=== PATIENT | male | born 1985 | race Caucasian/White ===

== ENCOUNTER 2020-01-15 12:36 | Emergency (ER) | payer OTHER, SELFPAY ==
[2020-01-15 13:17] VITALS: BP 153/89; PULSE 81; RESP 18; TEMP 37.1; O2SAT 100
--- NOTE | 2020-01-15 13:36 | ED.URI ---
HPI - URI/Sore Throat General Chief Complaint: Upper Respiratory Infection Stated Complaint: sore throat Time Seen by Provider: 01/15/20 13:36 Source: patient Mode of arrival: ambulatory Limitations: no limitations History of Present Illness HPI Narrative: Humberto Ortiz is a 34 yo male with no PMH who comes to express care with a sore throat that started 2 days ago. He has been having difficulty with swallowing, no fever, is able to drink fluids, states that he thought it was strep although he has no known exposure Related Data Allergies Allergy/AdvReac Type Severity Reaction Status Date / Time No Known Allergies Allergy Verified 01/15/20 13:00 Review of Systems Review of Systems: Narrative: CONSTITUTIONAL: Denies fever, chills, sweats. EYES: Denies visual changes, redness, discharge. ENT: Denies rhinorrhea, congestion, has sore throat, no otalgia. CARDIOVASCULAR: Denies chest pain, palpitations, edema. RESPIRATORY: Denies dyspnea, wheezing, cough GASTROINTESTINAL: Denies abdominal pain, nausea, vomiting, diarrhea. GENITOURINARY: Denies dysuria, hematuria, abnormal discharge SKIN: Denies rash or itching. NEUROLOGIC: Denies numbness, or focal weakness. PSYCHIATRIC: Denies anxiety or depression. [facility] Family History Family History (Updated 01/15/20 @ 13:46 by Becki Mancuso CNP) Other No acute medical problems Social History Social History (Updated 01/15/20 @ 13:46 by Becki Mancuso CNP) Smoking status: Former smoker Alcohol intake: current Comments At time of signature, I agree with nursing past medical, surgical, social and family history. There is no relevant family history pertinent to the presenting complaint. Blood pressure is elevated at this visit should follow-up with PCP for evaluation Exam Narrative: Exam Narrative: GENERAL: This is a well-nourished, well-developed patient, in mild distress. HEAD: normocephalic, atraumatic. EYES: Sclera clear/white. Vision is grossly intact. EARS: External ears normal, auditory canals clear and without drainage, TMs normal without perforation. Hearing grossly intact. NOSE: External nose normal without nasal discharge, nares without redness, no rhinorrhea. THROAT: Mucous membranes moist, posterior pharynx erythema NECK: Neck supple, tender to palpation CARDIOVASCULAR: Regular rate and rhythm without murmurs, gallops, or rubs. RESPIRATORY: Clear to auscultation. Breath sounds equal bilaterally. No wheezes, rales, or rhonchi. GASTROINTESTINAL: Abdomen soft, SKIN: warm, intact with no suspicious lesions or rash, good texture and turgor. NEURO: awake, alert, and oriented to person, place and time. There were no obvious focal neurologic abnormalities. Steady gait EXTREMITIES: Normal range of motion. BACK: Nontender without deformity Course Course Emergency Course: Strep test negative started on prednisone, cepacol lozenges, Z-Elvis(due to tender submandibular lymph nodes) Push fluids, follow-up with PCP especially regarding elevated blood pressure Vital Signs Vital signs: Vital Signs Temperature 98.8 F 01/15/20 13:17 Pulse Rate 81 01/15/20 13:17 Respiratory Rate 18 01/15/20 13:17 Blood Pressure 153/89 H 01/15/20 13:17 Pulse Oximetry 100 01/15/20 13:17 Temperature 98.8 F 01/15/20 13:17 Pulse Rate 81 01/15/20 13:17 Respiratory Rate 18 01/15/20 13:17 Blood Pressure 153/89 H 01/15/20 13:17 Pulse Oximetry 100 01/15/20 13:17 MDM - URI/Sore Throat Differential Diagnosis Differential diagnosis: Likely upper respiratory infection, sinusitis, pharyngitis and other Lab Data Labs: Strep Screen Presumptive Negative *(Reference Range: Negative)* Discharge Plan Discharge Clinical Impression: Pharyngitis Qualifiers: Pharyngitis/tonsillitis etiology: unspecified etiology Qualified Code(s): J02.9 - Acute pharyngitis, unspecified Patient Disposition: Home, Self-Care Condition: Sta
== END 2020-01-15 13:54 | disposition home or self-care (01) ==
PROVIDERS: Emergency Provider Nurse Practitioner
DX: J02.9 Acute pharyngitis, unspecified (principal); Z87.891 Personal history of nicotine dependence
CPT/HCPCS: 87081; 87880; 99213; G0463

== ENCOUNTER 2021-03-16 08:19 | Outpatient (CLI) | payer OTHER, SELFPAY ==
--- NOTE | 2021-03-16 11:30 | NEURO_ITS ---
Impression: # Complains of ankle pain. # Normal nerve conduction study. # Normal needle/EMG exam. # Clinical correlation recommended. Nerve Conduction Studies Anti Sensory Summary Table Stim Site NR Peak (ms) P-T Amp (?V) Site1 Site2 Delta-P (ms) Dist (cm) Saran (m/s) Left Sup Fibular Anti Sensory (Ant Lat Mall) 14 cm 3.2 6.6 14 cm Ant Lat Mall 3.2 16.0 50 Right Sup Fibular Anti Sensory (Ant Lat Mall) 14 cm 3.1 21.2 14 cm Ant Lat Mall 3.1 16.0 52 Left Sural Anti Sensory (Lat Mall) Calf 3.9 18.1 Calf Lat Mall 3.9 16.0 41 Right Sural Anti Sensory (Lat Mall) Calf 3.7 18.8 Calf Lat Mall 3.7 16.0 43 Motor Summary Table Stim Site NR Onset (ms) O-P Amp (mV) Site1 Site2 Delta-0 (ms) Dist (cm) Saran (m/s) Left Lateral Plantar Motor (ADM) Med Mall 5.0 2.5 Right Lateral Plantar Motor (ADM) Med Mall 4.5 1.1 Left Peroneal Motor (Vastus Med) Ankle 3.8 1.9 Popit Ankle 9.0 44.0 49 Popit 12.8 0.9 Right Peroneal Motor (Vastus Med) Ankle 4.1 1.6 Popit Ankle 7.9 39.0 49 Popit 12.0 1.1 Left Tibial Motor (Abd Stevens Brev) Ankle 4.3 5.8 Knee Ankle 9.3 43.0 46 Knee 13.6 3.8 Right Tibial Motor (Abd Stevens Brev) Ankle 4.1 4.5 Knee Ankle 9.3 42.0 45 Knee 13.4 3.1 F Wave Studies NR F-Lat (ms) L-R F-Lat (ms) Left Peroneal (Mrkrs) (EDB) 49.42 0.67 Right Peroneal (Mrkrs) (EDB) 48.75 0.67 Left Tibial (Mrkrs) (Abd Hallucis) 48.94 0.67 Right Tibial (Mrkrs) (Abd Hallucis) 49.61 0.67 EMG Side Muscle Nerve Root Ins Act Fibs Amp Dur Recrt Comment Right AntTibialis Dp Br Fibular L4-5 Nml Nml Nml Nml Nml Right Gastroc Tibial S1-2 Nml Nml Nml Nml Nml Right Fibularis Long Sup Br Fibular L5-S1 Nml Nml Nml Nml Nml Right Flex Dig Long Tibial L5-S2 Nml Nml Nml Nml Nml Right Ext Dig Brev Dp Br Fibular L5, S1 Nml Nml Nml Nml Nml Left AntTibialis Dp Br Fibular L4-5 Nml Nml Nml Nml Nml Left Gastroc Tibial S1-2 Nml Nml Nml Nml Nml Left Fibularis Long Sup Br Fibular L5-S1 Nml Nml Nml Nml Nml Left Flex Dig Long Tibial L5-S2 Nml Nml Nml Nml Nml Left Ext Dig Brev Dp Br Fibular L5, S1 Nml Nml Nml Nml Nml Right QuadratusFem QuadFemoris L4-5, S1 Nml Nml Nml Nml Nml Left QuadratusFem QuadFemoris L4-5, S1 Nml Nml Nml Nml Nml MTDD
== END 2021-03-16 08:20 | disposition home or self-care (01) ==
DX: G57.51 Tarsal tunnel syndrome, right lower limb (principal); G57.52 Tarsal tunnel syndrome, left lower limb
CPT/HCPCS: 95886; 95911